=== PATIENT | male | born 1965 | race Caucasian/White ===

== ENCOUNTER → 2017-01-16 | Outpatient (CLI) | payer OTHER ==
[~2017-01-16] MED LIST: ADVAIR 2501 DISK W/D PO; ALBUTEROL MININEB NEB; ALBUTEROL17 G1 INH; ALBUTEROL17 GM INH; AMOXICILLIN500 M1 PO; BENZONATATE PO; COLACE PO; COUMADIN5 MG PO; DICLOFENAC PO; DOXYCYCLINE HY100 M3 PO; DOXYCYCLINE PO; ENOXAPARIN60 MG/0.6 SQ; HYDROCODON-ACE1 EAC9 PO; HYDROCODONE-APA1 T58 PO; LISINOPRIL10 MG PO; LOVENOX SUBQ; LOVENOX40 MG/0.4 INJ; MELOXICAM15 MG PO; PREDNISONE PO; PREDNISONE10 MG/DOSE PO; PRINIVIL20 M1 PO; ROBITUSSIN A-C S5 ML PO; ROBITUSSIN PE118 ML PO; SIMVASTATIN10 MG PO; STERAPRED5 MG/DOSE1 PO; SYMBICORT INH
--- NOTE | ~2017-01-16 | CR151 ---
[facility] A Service of [facility] & [facility] RADIOLOGY TEXT RESULTS PATIENT: PREMA KUMAR LOCATION: [facility] : 69 UNIT #: [id number] AGE: [address]: India Ross MD SEX: M ORDER DR: [id number] [facility] [address] [place], [place] [address] [id number] O MR#: [id number] Acc #: [id number] NAME: PREMA KUMAR. : 1965 SEX: M STUDY DATE/TIME: 01/16/2017 9:32 UNIT: [facility] ROOM: STUDY DESCRIPTION: CR Hip Min 2 Views Rt Attending Physician: India Ross M.D. Referring Physician: India Ross M.D. Ordering Physician: India Ross M.D. Primary Care Physician: Lata Soto M.D. MEDICAL IMAGING REPORT This report is preliminary unless electronic signature is present EXAM Right hip 3 views 01/16/2017 HISTORY Right hip pain, painful right hip replacement for 2 years. No known injury. FINDINGS Three views of the right hip demonstrate no fracture. The bipolar right hip prosthesis appears well seated. The bones are normally mineralized. There is no soft tissue abnormality. IMPRESSION Bipolar right hip prosthesis. No acute abnormality. Dictated by... Nic Griffin M.D. THIS IS AN ELECTRONICALLY VERIFIED REPORT Nic Griffin M.D. at 01/17/2017 8:13 AM RACHEL/josefa TD: 01/16/2017 18:17 JOB #: [id number] MEDICAL IMAGING REPORT Page 1 of 1 COPY
[2017-01-16 10:09] LABS: HEMATOCRIT 43.3 % (38.0-50.0); HEMOGLOBIN 14.2 gm/dL (13.0-16.0); MEAN CELL VOLUME 93.7 FL (83-96); MEAN CORPUSCULAR HEMOGLOBIN 30.7 PG (28-34); MEAN CORPUSCULAR HGB CONC 32.8 g/dL (30-36); MEAN PLATELET VOLUME 8.1 FL (6.5-11.5); RED BLOOD COUNT 4.63 X10e (3.90-5.60); RED CELL DISTRIBUTION WIDTH 13.5 % (11.0-15.5); WHITE BLOOD COUNT 8.3 X10e3 (4.0-10.5)
== END | disposition home or self-care (01) ==
LOC: CRAD 09:11
PROVIDERS: Orthopaedic Surgery
DX: T84.84XA Pain due to internal orthopedic prosthetic devices, implants and grafts, initial encounter (principal); Z96.641 Presence of right artificial hip joint
CPT/HCPCS: 36415; 73502; 85027; 85652; 86140